=== PATIENT | female | born 1945 | race Two or more races ===

== ENCOUNTER 2024-09-20 11:39 | Inpatient (IN) | payer MEDICARE ==
[2024-09-20] MEDS: Dexamethasone 4 MG/ML SDV IVPUSH ONE (12:04)
[2024-09-20 12:05] LABS: BASOPHILS ABSOLUTE AUTO 0.05 K/uL (0.00-0.10); BASOPHILS PERCENT AUTO 0.4 % (0.1-1.3); EOSINOPHILS ABSOLUTE AUTO 0.29 K/uL (0.00-0.40); EOSINOPHILS PERCENT AUTO 2.4 % (0.0-5.4); IMMATURE GRAN ABSOLUTE AUTO 0.04 K/uL (0.00-0.23); IMMATURE GRAN PERCENT AUTO 0.3 % (0.0-0.7); LYMPHOCYTES ABSOLUTE AUTO 1.29 K/uL (0.8-3.3); LYMPHOCYTES PERCENT AUTO 10.9 % (11.4-47.7); MONOCYTES ABSOLUTE AUTO 0.73 K/uL (0.20-0.90); MONOCYTES PERCENT AUTO 6.2 % (3.3-12.6); NEUTROPHILS ABSOLUTE AUTO 9.45 K/uL (1.0-7.6); NEUTROPHILS PERCENT AUTO 79.8 % (40.0-78.1); PLATELET COUNT,PLT 187 K/uL (130-375); RED BLOOD CELL COUNT 4.84 M/uL (3.77-5.24); WHITE BLOOD CELL COUNT,WBC 11.9 K/uL (3.2-11.0)
[2024-09-20 12:21] LABS: BLOOD UREA NITROGEN,BUN 12.0 mg/dL (7-18); CARBON DIOXIDE,CO2 30.0 mmol/L (21-32); CHLORIDE,CL 103.0 mmol/L (100-108); CREATININE 0.9 mg/dL (0.6-1.0); EST CRCL DRUG DOSING (CG) 51.97 mL/min; ESTIMATED GFR 65.0 mL/min (>60); GLUCOSE RANDOM 108.0 mg/dL (74-106); POTASSIUM,K 3.9 mmol/L (3.6-5.2); SODIUM,NA 139.0 mmol/L (140-148)
[2024-09-20 18:30] LABS: BASE EXCESS VENOUS 1.2 mm/L; BICARBONATE,VENOUS 25.4 mmol/L; O2 SATURATION VENOUS 52.5; OXYHEMOGLOBIN 50.6 %; PCO2 VENOUS 40.5 mm/Hg; PH,VENOUS 7.413 (7.350-7.450); TOTAL HEMOGLOBIN 15.5 g/dL (12.0-16.0)
[2024-09-20 18:41] LABS: PO2 VENOUS 28.5 mm/Hg
[2024-09-20] MEDS: Sodium Chloride 0.9% 10 ML Syringe FLUSH ONE (18:54)
[2024-09-20] MEDS: Iopamidol 612 MG/ML 100 ML Bottle IV ONE (18:54)
[2024-09-20] MEDS: Furosemide 20 MG/2 ML VIAL IVPUSH ONE (19:29)
[2024-09-21 06:00] LABS: PLATELET COUNT,PLT 177.0 K/uL (130-375); RED BLOOD CELL COUNT 4.38 M/uL (3.77-5.24); WHITE BLOOD CELL COUNT,WBC 12.1 K/uL (3.2-11.0)
[2024-09-21 06:17] LABS: BLOOD UREA NITROGEN,BUN 15.0 mg/dL (7-18); CARBON DIOXIDE,CO2 28.0 mmol/L (21-32); CHLORIDE,CL 101.0 mmol/L (100-108); CREATININE 0.9 mg/dL (0.6-1.0); EST CRCL DRUG DOSING (CG) 37.0 mL/min; ESTIMATED GFR 65.0 mL/min (>60); GLUCOSE RANDOM 169.0 mg/dL (74-106); POTASSIUM,K 4.2 mmol/L (3.6-5.2); SODIUM,NA 138.0 mmol/L (140-148)
== END 2024-09-22 11:09 | disposition home or self-care (01) | DRG 189 ==
LOC: JP.ED 11:39 → JP.MS 16:16 → OBSVTOIN 09-21 10:52 → JP.MS 09-21 16:36
PROVIDERS: ADMIT Student in an Organized Health Care Education/Training Program; ATTEND Internal Medicine
DX: J96.01 Acute respiratory failure with hypoxia (principal); J44.1 Chronic obstructive pulmonary disease with (acute) exacerbation; J44.0 Chronic obstructive pulmonary disease with (acute) lower respiratory infection; J20.9 Acute bronchitis, unspecified; J43.9 Emphysema, unspecified; I25.10 Atherosclerotic heart disease of native coronary artery without angina pectoris; I10 Essential (primary) hypertension; F17.210 Nicotine dependence, cigarettes, uncomplicated; H54.7 Unspecified visual loss; E78.2 Mixed hyperlipidemia; E78.00 Pure hypercholesterolemia, unspecified; K52.9 Noninfective gastroenteritis and colitis, unspecified; F41.9 Anxiety disorder, unspecified; Z85.828 Personal history of other malignant neoplasm of skin; Z90.89 Acquired absence of other organs; Z87.81 Personal history of (healed) traumatic fracture; Z95.5 Presence of coronary angioplasty implant and graft; I25.2 Old myocardial infarction; Z98.49 Cataract extraction status, unspecified eye; Z98.890 Other specified postprocedural states; Z88.0 Allergy status to penicillin; Z79.82 Long term (current) use of aspirin; Z79.899 Other long term (current) drug therapy
CPT/HCPCS: 36415 ×2; 71046 ×2; 71260 ×2; 80048 ×2; 82803; 85025; 85027; 94640 ×5; 94667; 96374; 99285; A9270 ×12; J0696; J1100; J1938; J7512; Q9967; 94668; 96365; 96375; 99223; 99232; 99238; G0378; J1650